=== PATIENT | female | born 1980 | race Caucasian/White ===

== ENCOUNTER 2017-10-13 19:30 | Emergency (ER) | payer BC ==
[~2017-10-13] VITALS: Ht 154.9 cm; Wt 79.8 kg
[2017-10-13 19:44] VITALS: Ht 154.9 cm; Wt 79.8 kg
[2017-10-13 20:03] LABS: BASOPHIL % 0.5 % (0-2); PLATELET COUNT 281 x10^3mcL (130-400); RED CELL DISTRIBUTION WIDTH 13.8 % (11.5-14.5)
[2017-10-13] MEDS ORDERED: LIPI10 PO (20:09)
[2017-10-13] MEDS ORDERED: GLUCOTROL5 MG PO (20:10)
[2017-10-13] MEDS ORDERED: METFORMIN HCL500 MG PO (20:11)
[2017-10-13] MEDS ORDERED: LIPI20 PO (20:12)
[2017-10-13] MEDS ORDERED: LOSARTAN POTAS100 M1 PO (20:12)
[2017-10-13 20:13] LABS: CALCIUM 8.3 mg/dL (8.5-10.1); CARBON DIOXIDE 25.9 mmol/L (21-32); CHLORIDE SERUM 102 mmol/L (98-107); CREATININE SERUM 0.6 mg/dL (0.6-1.0); GFR1 > 60 mL/min; GLUCOSE SERUM 126 mg/dL (74-106); POTASSIUM SERUM 3.4 mmol/L (3.5-5.1); SODIUM SERUM 139 mmol/L (136-145)
[2017-10-13 20:24] LABS: ALBUMIN 3.5 g/dL (3.4-5.0); ALKALINE PHOSPHATASE 86 U/L (46-116); ALT/SGPT 103 U/L (14-59); AST/SGOT 42 U/L (15-37); BILIRUBIN TOTAL 0.2 mg/dL (0.20-1.00); T4(THYROXINE) 8.4 ug/dL (4.7-13.3); TOTAL PROTEIN, SERUM 7.4 g/dL (6.4-8.2)
[2017-10-13 21:56] VITALS: BP 143/85
== END 2017-10-13 21:56 | disposition home or self-care (01) ==
LOC: ED 19:30
PROVIDERS: Emergency Medicine
DX: R20.2 Paresthesia of skin (principal); F41.9 Anxiety disorder, unspecified; R00.2 Palpitations; R11.0 Nausea
CPT/HCPCS: 36415